=== PATIENT | female | born 1970 | race Asian ===

== ENCOUNTER 2019-02-12 13:06 | Day surgery (SDC) | payer BC ==
[2019-02-12] MEDS ORDERED: PROPOFOL 40 ML (17:52)
[2019-02-12] MEDS ORDERED: FENTAnyl 50 MCG/ML VIAL (17:52)
[2019-02-12] MEDS ORDERED: LIDOCAINE 2% (SDV) 5 ML INJ (17:52)
== END 2019-02-12 20:20 | disposition home or self-care (01) ==
LOC: GIL 13:06
DX: Z12.11 Encounter for screening for malignant neoplasm of colon (principal); K64.8 Other hemorrhoids; K20.9 Esophagitis, unspecified; K29.70 Gastritis, unspecified, without bleeding
CPT/HCPCS: 43239; 84703; 88305